=== PATIENT | female | born 1965 | race American Indian/Alaskan Native ===

== ENCOUNTER 2017-08-22 18:09 | Emergency (ER) | payer BC, OTHER ==
[~2017-08-22] VITALS: Ht 157.5 cm; Wt 99.8 kg
[~2017-08-22 18:09] MED LIST: CLARITIN10 MG PO; EPINEPHRIN0.3 MG/0.3 IM; FLECTOR1 EACH TOP; FLOMAX0.4 MG PO; HYDROCODON-ACE1 EAC8 PO; MAXALT10 MG PO; MULTIVITAMINS1 EAC7 PO; NEXIUM20 MG PO; NORCO 5-325 TA1 EACH PO; OXYCODONE 10MG PO; OXYCODONE HCL5 MG PO; OXYCONTIN10 MG PO; PERCOCET 5-3251 EACH PO; PREDNISONE20 MG PO; PYRIDIUM200 MG PO; SEPTRA DS TABL1 EACH PO; SKELAXIN800 MG PO; SUDAFED30 MG PO; TYLENOL WITH C1 EACH PO; VITAMIN D PO; VITAMIN D5000 UNIT PO; ZOLOFT PO; ZOLOFT50 MG PO
== END 2017-08-22 21:10 | disposition home or self-care (01) ==
LOC: ED 18:09
PROC: 2W3JX1Z Immobilization of Right Finger using Splint (ICD-10-PCS; principal; 2017-08-22)
DX: S63.610A Unspecified sprain of right index finger, initial encounter (principal); S20.212A Contusion of left front wall of thorax, initial encounter; F17.200 Nicotine dependence, unspecified, uncomplicated; Z90.49 Acquired absence of other specified parts of digestive tract; Z88.0 Allergy status to penicillin; Z88.6 Allergy status to analgesic agent; Z88.5 Allergy status to narcotic agent; Z88.1 Allergy status to other antibiotic agents; Z88.8 Allergy status to other drugs, medicaments and biological substances; Z79.52 Long term (current) use of systemic steroids; Z79.899 Other long term (current) drug therapy; W18.30XA Fall on same level, unspecified, initial encounter
CPT/HCPCS: 29130; 71101; 73140; 99283

== ENCOUNTER 2017-11-28 22:35 | Emergency (ER) | payer BC, OTHER ==
[~2017-11-28] VITALS: Ht 157.5 cm; Wt 92.1 kg
== END 2017-11-29 01:24 | disposition home or self-care (01) ==
LOC: ED 22:35
DX: H10.9 Unspecified conjunctivitis (principal); F17.200 Nicotine dependence, unspecified, uncomplicated; Z88.0 Allergy status to penicillin; Z88.8 Allergy status to other drugs, medicaments and biological substances; Z88.1 Allergy status to other antibiotic agents; Z88.5 Allergy status to narcotic agent; Z79.899 Other long term (current) drug therapy; Z79.891 Long term (current) use of opiate analgesic
CPT/HCPCS: 99282

== ENCOUNTER 2018-06-20 18:43 | Emergency (ER) | payer BC, OTHER ==
[~2018-06-20] VITALS: Ht 157.5 cm; Wt 92.1 kg
--- OUTSIDE RECORDS SUMMARY | ~2018-06-20 | XMS | Clinical Summary ---
Demographics + + + | Address | [address] | | | [place] [address] | + + + | Home Phone | | + + + | Preferred Language | Unknown | + + + | Marital Status | Single | + + + | Quaker Affiliation | Unknown | + + + | Race | Unknown | + + + | Ethnic Group | Unknown | + + + Author + + + | Author | [facility] | + + + | Organization | [facility] | + + + | Address | Unknown | + + + | Phone | Unavailable | + + + Support + + +---------+ + | Name | Relationship | Address | Phone | + + +---------+ + | Message,Detailed | ECON | Unknown | | + + +---------+ + | Sumi Shirley & | ECON | Unknown | | | Karri | | | | + + +---------+ + | David Campo | ECON | Unknown | | + + +---------+ + | Oniel Shirley | ECON | Unknown | | + + +---------+ + Care Team Providers + +------+ + | Care Rhinestone Setter Name | Role | Phone | + +------+ + | Umair Polanco MD | PP | | + +------+ + Allergies + + + + + + | Active Allergy | Reactions | Severity | Noted | Comments | | | | | Date | | + + + + + + | Aspirin | Shortness of Breath | High | 06/08/20 | | | | | | 16 | | + + + + + + | Hydromorphone | Hives | High | 06/08/20 | | | | | | 16 | | + + + + + + | Penicillins | Other (See Comments) | Medium | 06/08/20 | Unknown | | | | | 16 | | + + + + + + | Sulfamethoxazole-Tri | Hives | High | 06/08/20 | | | methoprim | | | 16 | | + + + + + + | Topiramate | Hives | High | 06/08/20 | | | | | | 16 | | + + + + + + | Ondansetron | Other (See Comments) | Medium | 06/08/20 | Unknown | | | | | 16 | | + + + + + + Current Medications + + +-------+---------+------+------+-------+ | Prescription | Sig. | Disp. | Refills | Star | End | Statu | | | | | | t | Date | s | | | | | | Date | | | + + +-------+---------+------+------+-------+ | cetirizine | Take 10 mg by mouth | | | | | Activ | | (ZYRTEC) 10 MG | daily. | | | | | e | | tablet | | | | | | | + + +-------+---------+------+------+-------+ | Cholecalciferol | Take 5,000 Units by | | | | | Activ | | (VITAMIN D3) 5000 | mouth daily. | | | | | e | | UNITS TABS | | | | | | | + + +-------+---------+------+------+-------+ | docusate sodium | Take 100 mg by mouth | | | | | Activ | | (COLACE) 100 MG | daily. | | | | | e | | capsule | | | | | | | + + +-------+---------+------+------+-------+ | esomeprazole | Take 40 mg by mouth | | | | | Activ | | (NEXIUM) 40 MG | every morning before | | | | | e | | capsule | breakfast. | | | | | | + + +-------+---------+------+------+-------+ | loratadine | Take 10 mg by mouth | | | | | Activ | | (CLARITIN) 10 MG | daily. | | | | | e | | tablet | | | | | | | + + +-------+---------+------+------+-------+ | Multiple | Take by mouth. | | | | | Activ | | Vitamins-Minerals | | | | | | e | | (MULTIVITAMIN ADULT | | | | | | | | PO) | | | | | | | + + +-------+---------+------+------+-------+ | | Take 1 tablet by | | | | | Activ | | oxyCODONE-acetaminop | mouth every 8 | | | | | e | | hen (PERCOCET) | (eight) hours as | | | | | | | 10-325 MG per tablet | needed for Pain. | | | | | | + + +-------+---------+------+------+-------+ | pseudoephedrine | Take 60 mg by mouth | | | | | Activ | | (SUDAFED) 60 MG | 2 (two) times daily. | | | | | e | | tablet | | | | | | | + + +-------+---------+------+------+-------+ | rizatriptan | Take 10 mg by mouth | | | | | Activ | | (MAXALT) 10 MG | as needed for | | | | | e | | tablet | Migraine. May repeat | | | | | | | | in 2 hours if | | | | | | | | needed; do not | | | | | | | | exceed 3 tablets in | | | | | | | | 24 hours. | | | | | | + + +-------+---------+------+------+-------+ | UNABLE TO FIND | CPAP | | | | | Activ | | | | | | | | e | + + +-------+---------+------+------+-------+ | amitriptyline | Take 20 mg by mouth | | | | | Activ | | (ELAVIL) 10 MG | nightly. 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 | + + + | Syrinx of spinal cord (HCC) | 06/12/2016 | + + + | Lower extremity numbness | 06/12/2016 | + + + | Hand numbness | 06/12/2016 | + + + | Facial numbness | 06/12/2016 | + + + Family History + + +------+ + | Medical History | Relation | Name | Comments | + + +------+ + | Diabetes type II | Father | | | + + +------+ + | Heart defect | Father | | | + + +------+ + | Stroke | Father | | | + + +------+ + | Alcohol abuse | Mother | | | + + +------+ + + +------+--------+ + | Relation | Name | Status | Comments | + +------+--------+ + | Father | | Alive | | + +------+--------+ + | Mother | | Alive | | + +------+--------+ + Social History + +-------+ +--------+------+ | Tobacco Use | Types | Packs/Day | Years | Date | | | | | Used | | + +-------+ +--------+------+ | Current Every Day | | | | | | Smoker | | | | | + +-------+ +--------+------+ + + +---------+ + | Alcohol Use | Drinks/We | oz/Week | Comments | | | ek | | | + + +---------+ + | No | | | | + + +---------+ + + + + | Sex Assigned at | Date Recorded | | | | + + + | Not on file | | + + + Last Filed Vital Signs + + + + | Vital Sign | Reading | Time Taken | + + + + | Blood Pressure | 143/92 | 02/25/2017 4:24 PM PDT | + + + + | Pulse | 76 | 02/25/2017 4:24 PM PDT | + + + + | Temperature | - | - | + + + + | Respiratory Rate | - | - | + + + + | Oxygen Saturation | - | - | + + + + | Inhaled Oxygen | - | - | | Concentration | | | + + + + | Weight | 98.9 kg (218 lb) | 02/25/2017 4:24 PM PDT | + + + + | Height | 157.5 cm (5' 2") | 02/25/2017 4:24 PM PDT | + + + + | Body Mass Index | 39.87 | 02/25/2017 4:24 PM PDT | + + + + Plan of Treatment + + + + + | Health Maintenance | Due Date | Last Done | Comments | + + + + + | Vaccine: | | | | | Dtap/Tdap/Td (1 - | 5 | | | | Tdap) | | | | + + + + + | Vaccine: | | | | | Pneumococcal 19-64 | 5 | | | | (PPSV23 only) Medium | | | | | Risk (1 of 1 - | | | | | PPSV23) | | | | + + + + + | Cervical Cancer | | | | | Screening (Pap) | 6 | | | + + + + + | Breast Cancer | | | | | Screening | 6 | | | | (Mammogram) | | | | + + + + + | Colon Cancer | | | | | Screening | 6 | | | | (Colonoscopy) | | | | + + + + + | Vaccine: Influenza | | | | | (#1) | 8 | | | + + + + + Results Not on filefrom Last 3 Months Insurance + +--------+ +------+-------+ + | Payer | Benefi | Subscriber | Type | Phone | Address | | | t Plan | ID | | | | | | / | | | | | | | Group | | | | | + +--------+ +------+-------+ + | [employer] | PREMER | [id number] | | | [address] [address] | | | A BLUE | | | | [place] | | | [place] | | | | [phone] | | | FED | | | | | | | PPO | | | | | + +--------+ +------+-------+ + | [employer] | YELLOW | [id number] | | | | | PLANS | [place] | | | | | + +--------+ +------+-------+ + + +--------+ +--------+ + + | Guarantor Name | Accoun | Relation to | Date | Phone | Billing Address | | | t Type | Patient | of | | | | | | | | | | + +--------+ +--------+ + + | ZEHRA SHIRLEY | Person | Self [birth year] Work: | [address] | | | al/[place] | | 1965 | [phone] | [place] | | | [place] | | | [address]: | [address] | | | | | | | | | | | | | [phone] | | | | | | | [phone] | | + +--------+ +--------+ + +
--- OUTSIDE RECORDS SUMMARY | ~2018-06-20 | XMS | Clinical Summary ---
Demographics + + + | Address | [address] | | | [place] [address] | + + + | Home Phone | | + + + | Preferred Language | Unknown | + + + | Marital Status | Single | + + + | Buddhist Affiliation | Unknown | + + + | Race | Unknown | + + + | Ethnic Group | Unknown | + + + Author + + + | Author | [facility] | + + + | Organization | [facility] | + + + | Address [...] Team Providers + +------+ + | Care Driver License Reviewing Officer Name | Role | Phone | + [...] +------+-------+ + | [employer] | PREMER | [id number] | | | [address] [address] | | | A BLUE | | | | [place] | | | [place] | | | | [phone] | | | FED | | | | | | | PPO | | | | | + +--------+ +------+-------+ + | [employer] | YELLOW | [id number] | | | | | PLANS | [...] | | al/Ryan | | 1965 | [phone] | [place] | | | [place] | | | [address]: | [phone] | | | | | | | | | | | | | [phone] | | | | | | | [phone] | | + +--------+ +--------+ + +
[2018-06-20] MEDS ORDERED: OXYCODONE-ACET1 EAC3 PO (19:47)
[2018-06-20] MEDS ORDERED: DIBUCAINE28 GM PR (20:12)
[2018-06-20] MEDS ORDERED: ANUSOL-HC30 GM PR (20:12)
== END 2018-06-20 20:33 | disposition home or self-care (01) ==
LOC: ED 18:43
DX: K64.5 Perianal venous thrombosis (principal); F17.200 Nicotine dependence, unspecified, uncomplicated; Z88.0 Allergy status to penicillin; Z88.6 Allergy status to analgesic agent; Z88.1 Allergy status to other antibiotic agents; Z88.5 Allergy status to narcotic agent; Z88.8 Allergy status to other drugs, medicaments and biological substances; Z79.899 Other long term (current) drug therapy
CPT/HCPCS: 99283

== ENCOUNTER 2019-11-23 17:26 | Emergency (ER) | payer BC, OTHER ==
[~2019-11-23] VITALS: Ht 157.5 cm; Wt 81.7 kg
[~2019-11-23 17:26] MED LIST changes: +ANUSOL-HC30 GM PR; +DIBUCAINE28 GM PR; +OXYCODONE-ACET1 EAC3 PO
--- OUTSIDE RECORDS SUMMARY | 2019-11-23 17:30 | XMS ---
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 Gianni has no Care Guidelines for this patient. Michelle VISIT COUNT (12 MO.) 1 [facility] Joshi TOTAL 1 NOTE: Visits indicate total known visits. ED/UCC VISIT TRACKING (12 MO.) 11/23/2019 17:27 BLAN[facility] Pham OR TYPE: Emergency COMPLAINT: - RECTAL BLEED INPATIENT VISIT TRACKING (12 MO.) No inpatient visits to display in this time frame [id number]
[2019-11-23] MEDS ORDERED: VITAMIN D400 UNIT PO (19:53)
[2019-11-23] MEDS ORDERED: ANUSOL-HC25 MG PR (20:57)
== END 2019-11-23 21:08 | disposition home or self-care (01) ==
LOC: ED 17:26
DX: K64.8 Other hemorrhoids (principal); F17.200 Nicotine dependence, unspecified, uncomplicated; Z88.0 Allergy status to penicillin; Z88.1 Allergy status to other antibiotic agents; Z88.6 Allergy status to analgesic agent; Z88.5 Allergy status to narcotic agent; Z79.899 Other long term (current) drug therapy; Z79.891 Long term (current) use of opiate analgesic
CPT/HCPCS: 80053; 81001; 83690; 85025; 99283